=== PATIENT | male | born 1950 | race Caucasian/White ===

== ENCOUNTER 2019-07-25 09:18 | Outpatient (CLI) | payer MEDICARE, SELFPAY ==
[2019-07-25 09:36] LABS: Appearance Urine Cloudy (Clear); Bilirubin Urine Negative (Negative); Color Urine Orange (Yellow); Glucose Urine UA Trace (Negative); Ketones Urine Negative (Negative); Leukocyte Esterase Ur 2+ (Negative); Nitrate Urine Positive (Negative); Protein Urine 1+ (Negative); Specific Grav Ur <= 1.005 (1.010-1.020)
[2019-07-25 09:38] LABS: Add Urine Microscopic? YES; Blood Urine Trace-Intact (Negative)
[2019-07-25 09:39] LABS: Bacteria Urine 4+ /hpf; Squamous Epithelial Cell Urine Rare /hpf (Few); WBC Urine 51-75 /hpf (0-3)
== END 2019-07-25 09:19 | disposition home or self-care (01) ==
PROVIDERS: PCP Internal Medicine; Visit Provider Internal Medicine
DX: N39.0 Urinary tract infection, site not specified (principal)
CPT/HCPCS: 81001; 87086; 87088

== ENCOUNTER 2021-08-21 00:35 | Day surgery (SDC) | payer MEDICARE, SELFPAY ==
[2021-08-13 09:02] VITALS: BMI 51.5
--- NOTE | 2021-08-20 14:47 | P.PNAN_ITS ---
Anes - Initial Pre Proc Eval Procedure: Operation Date: 08/21/21 09:00 Proposed Procedures p Colonoscopy - Endy Metz DO Date/Time: 08/20/21 14:47 Surgeon: Endy Metz DO Pre Op Diagnosis: positive cologuard Patient Data Age: 71 Gender: M Height: 1.63 m Weight: 136 kg Allergies Allergy/AdvReac Type Severity Reaction Status Date / Time No Known Allergies Allergy Verified 08/21/21 08:22 Home Medications Medication Instructions Recorded Confirmed Type acetaminophen-codeine 1 tablet PO BID PRN 08/13/21 08/21/21 History albuterol sulfate [Ventolin HFA] 2 inh INHALATION Q4H PRN 08/13/21 08/21/21 History budesonide-formoterol [Symbicort] 1 inh INHALATION DAILY 08/13/21 08/21/21 History celecoxib 200 mg PO DAILY 08/13/21 08/21/21 History docusate sodium 100 mg PO DAILY PRN 08/13/21 08/21/21 History furosemide 40 mg PO DAILY 08/13/21 08/21/21 History gabapentin 300 mg PO BID 08/13/21 08/21/21 History hydrochlorothiazide 25 mg PO DAILY 08/13/21 08/21/21 History ipratropium-albuterol 3 ml INHALATION QID PRN 08/13/21 08/21/21 History metformin 500 mg PO BID 08/13/21 08/21/21 History multivit with min-folic acid 1 tablet PO DAILY 08/13/21 08/21/21 History [Adult One Daily Multivitamin] potassium chloride 10 meq PO DAILY 08/13/21 08/21/21 History Patient hx anesthesia problems: none Family hx anesthesia problems: none Results Review: All pre-operative results and documents have been reviewed as part of the pre-operative evaluation. [facility] Past Medical History Medical History (Updated 08/20/21 @ 14:48 by Huber Mcgovern DO) Anxiety Montelongo's palsy Chronic, continuous use of opioids COPD (chronic obstructive pulmonary disease) Diabetes type 2, controlled Hypertension JESUS (obstructive sleep apnea) Family History Family History (Updated 08/01/18 @ 00:00 by CONVUSER Gage) Father Family history of type 2 diabetes mellitus Social History Social History Smoking status: Former smoker Tobacco type: cigarettes Alcohol intake: former Living arrangements: with family Spiritual care concerns: No Anes - Eval Final PreProcedure Day of Procedure 08/20/21 14:47 Patient weight: super morbidly obese Heart: regular rate and rhythm Lungs: clear to auscultation and normal air movement Airway: Mallampati scale class II Neurological: alert and oriented Last oral intake: >/= 8 hours ASA classification: IV Emergent: no Anesthetic plan: proceed Anesthesia type and monitoring: general GIVS and standard monitoring Results Review: All pre-operative results and documents have been reviewed as part of the pre-operative evaluation. Informed Consent: The patient's anesthetic plan and its attendant risks and benefits were discussed with the patient/family/POA. Questions were solicited and answers provided to the satisfaction of the patient/family/POA.
[2021-08-21 08:22] LABS: Glucose Point of Care 139 mg/dl (65-105)
[2021-08-21 08:24] VITALS: BP 189/73; PULSE 84; RESP 17; TEMP 36.9; O2SAT 96
[2021-08-21] MEDS: LACTATED RINGERS 1,000 ML 150 ML IV CONT (08:34)
--- NOTE | 2021-08-21 09:28 | PM.IMHP ---
H&P: HPI History of Present Illness Date/Time: 08/21/21 09:28 Chief Complaint: positive Cologuard Narrative: this is a 71-year-old man who presents for colonoscopy. He recently had a Cologuard test that was positive. He has never had a colonoscopy before. He denies any blood in his stool. He denies any family history of colon cancer. Review of Systems Review of Systems: All systems reviewed & are unremarkable except as noted in HPI and below Constitutional: Constitutional: Denies chills, Denies fever(s), Denies headache(s) and Denies weight loss Eyes: Eyes: Denies change in vision ENT: Denies dizziness, Denies headache(s), Denies neck mass and Denies throat swelling Cardiovascular: Cardiovascular: Denies chest pain, Denies lightheadedness and Denies dyspnea Respiratory: Respiratory: Denies cough, Denies dyspnea and Denies wheezing Gastrointestinal: Gastrointestinal: Denies abdominal pain, Denies change in bowel habits, Denies nausea and Denies vomiting Genitourinary: Genitourinary: Denies hematuria and Denies dysuria Musculoskeletal: Musculoskeletal: Reports as per HPI Integumentary/Breasts: Skin/Breast: Reports as per HPI Neurologic: Denies dizziness and Denies headache(s) Allergic/Immunologic: Allergic/Immunologic: Denies throat swelling and Denies wheezing [facility] Past Medical History Medical History (Updated 08/21/21 @ 09:29 by Endy Metz DO) Anxiety Montelongo's palsy Chronic, continuous use of opioids COPD (chronic obstructive pulmonary disease) Diabetes type 2, controlled Hypertension JESUS (obstructive sleep apnea) Family History Family History (Updated 08/01/18 @ 00:00 by CONVUSER A) Father Family history of type 2 diabetes mellitus Social History Social History Smoking status: Former smoker Tobacco type: cigarettes Alcohol intake: former Living arrangements: with family Spiritual care concerns: No Meds Home Medications and Allergies Home Medications Medication Instructions Recorded Confirmed Type acetaminophen-codeine 1 tablet PO BID PRN 08/13/21 08/21/21 History albuterol sulfate [Ventolin HFA] 2 inh INHALATION Q4H PRN 08/13/21 08/21/21 History budesonide-formoterol [Symbicort] 1 inh INHALATION DAILY 08/13/21 08/21/21 History celecoxib 200 mg PO DAILY 08/13/21 08/21/21 History docusate sodium 100 mg PO DAILY PRN 08/13/21 08/21/21 History furosemide 40 mg PO DAILY 08/13/21 08/21/21 History gabapentin 300 mg PO BID 08/13/21 08/21/21 History hydrochlorothiazide 25 mg PO DAILY 08/13/21 08/21/21 History ipratropium-albuterol 3 ml INHALATION QID PRN 08/13/21 08/21/21 History metformin 500 mg PO BID 08/13/21 08/21/21 History multivit with min-folic acid 1 tablet PO DAILY 08/13/21 08/21/21 History [Adult One Daily Multivitamin] potassium chloride 10 meq PO DAILY 08/13/21 08/21/21 History Allergies Allergy/AdvReac Type Severity Reaction Status Date / Time No Known Allergies Allergy Verified 08/21/21 08:22 Vital Signs Vital Signs - 24 hr 08/21/21 08:24 Temperature 36.9 C Pulse Rate 84 Respiratory Rate 17 Blood Pressure 189/73 H Pulse Oximetry 96 Exam Const: General: no acute distress and alert Orientation/consciousness: patient oriented x3 HENMT: Head: normocephalic and atraumatic Ears: hearing grossly normal bilaterally General nose exam: Normal nares present Mouth: Yes Normal oral and palatal mucosa present Eyes: Periorbital: periorbital findings normal Sclera: sclerae normal EOM: EOMs intact bilaterally Neck: Neck: normal visual inspection, no lymphadenopathy and trachea midline Chest: Chest palpation & inspection: normal inspection of the chest Resp: Effort & Inspection: normal respiratory effort Auscultation: clear to auscultation bilaterally Cardio: Jugular venous distension: no JVD Rate: regular rate Rhythm: regular rhythm Heart sounds: S1 normal heart sound present and S2 normal heart sound present Peripheral pulses: Peripher
[2021-08-21 10:20] VITALS: BP 136/70; PULSE 74; RESP 20; O2SAT 99
[2021-08-21 10:30] VITALS: BP 139/74; PULSE 72; RESP 20; O2SAT 99
[2021-08-21 10:40] VITALS: BP 135/87; PULSE 70; RESP 22; O2SAT 99
== END 2021-08-21 10:55 | disposition home or self-care (01) ==
PROVIDERS: PCP Internal Medicine; Visit Provider Surgery
PROC: 0DJD8ZZ Inspection of Lower Intestinal Tract, Via Natural or Artificial Opening Endoscopic (ICD-10-PCS; CPT 45378; principal; 2021-08-21 09:00)
DX: R19.5 Other fecal abnormalities (principal); D12.5 Benign neoplasm of sigmoid colon; D12.3 Benign neoplasm of transverse colon; K57.30 Diverticulosis of large intestine without perforation or abscess without bleeding; I10 Essential (primary) hypertension; E11.9 Type 2 diabetes mellitus without complications; J44.9 Chronic obstructive pulmonary disease, unspecified; G47.33 Obstructive sleep apnea (adult) (pediatric); F41.9 Anxiety disorder, unspecified; Z79.891 Long term (current) use of opiate analgesic; Z87.891 Personal history of nicotine dependence; E66.01 Morbid (severe) obesity due to excess calories; Z68.43 Body mass index [BMI] 50.0-59.9, adult; Z79.51 Long term (current) use of inhaled steroids; Z79.84 Long term (current) use of oral hypoglycemic drugs
CPT/HCPCS: 45385; 82948; 88305; J2001; J2704; J7120

== ENCOUNTER 2022-08-10 13:00 | Outpatient (CLI) | payer MEDICARE, SELFPAY ==
--- NOTE | 2022-08-10 01:00 | ECHO_ITS ---
Patient Info Name: Tj Cullen Age: 72 years : 1950 Gender: Male Ht: 64 in Wt: 314 lbs BSA: 2.63 m2 HR: 83 bpm BP: 184 / 54 mmHg Heart Rhythm: Sinus Rhythm Technical Quality: Fair Exam Date: 08/10/2022 1:26 PM Exam Location: [facility] Patient Status: Outpatient Admit Date: 08/10/2022 Staff Ordering Physician: Tanja Figueredo MD S[employer] Hana Developer: Valerie Jernigan RDCS Attending Provider: Tanja Figueredo MD Referring Physician: Terell BETH; Exam Type: CA echo doppler color flow Study Info Indications R01.1 - Cardiac murmur, unspecified - hypertension Complete two-dimensional, color flow and Doppler transthoracic echocardiogram is performed. Summary 1. Complete two-dimensional, color flow and Doppler transthoracic echocardiogram is performed. 2. Left ventricular chamber dimension is normal. 3. Left ventricular systolic function is normal, estimated at 60-65%. 4. There is mild concentric increased left ventricular wall thickness. 5. The left ventricular diastolic function is grade I diastolic dysfunction. 6. E/e' 12 is mildly elevated. 7. There is moderate aortic valve sclerosis. 8. There is mild aortic valve stenosis with a peak velocity of 248 cm/s, mean gradient of 12 mmHg, and aortic valve area of 1.9 cm2. 9. There is trace tricuspid valve regurgitation. 10. No pulmonary hypertension, estimated pulmonary arterial systolic pressure is 23 mmHg. Left Ventricle E/e' 12 is mildly elevated. Left ventricular chamber dimension is normal. Left ventricular systolic function is normal, estimated at 60-65%. There is mild concentric increased left ventricular wall thickness. The left ventricular diastolic function is grade I diastolic dysfunction. Right Ventricle Right ventricular systolic function is normal and with normal TAPSE 2.8 cm. Right ventricular chamber dimension is normal. Left Atria Left atrial chamber dimension is normal. Right Atria Right atrial chamber dimension is normal. Aortic Valve The aortic valve is trileaflet. There is moderate aortic valve sclerosis. There is mild aortic valve stenosis with a peak velocity of 248 cm/s, mean gradient of 12 mmHg, and aortic valve area of 1.9 cm2. There is no aortic valve regurgitation. Pulmonic Valve There is no pulmonic regurgitation. Mitral Valve There is no mitral valve stenosis. There is no mitral valve regurgitation. Tricuspid Valve There is trace tricuspid valve regurgitation. No pulmonary hypertension, estimated pulmonary arterial systolic pressure is 23 mmHg. Pericardium/Pleural There is no pericardial effusion. Inferior Vena Cava Normal inferior vena cava with >50% collapse upon inspiration consistent with normal right atrial pressure, 5 mmHg. Aorta The aortic root size at the sinus of Valsalva is normal. Left Ventricular Outflow Tract Name Value Normal LVOT 2D LVOT Diameter 1.9 cm LVOT Doppler LVOT Peak Velocity 118 cm/s LVOT Peak Gradient 6 mmHg LVOT Mean Gradient 3 mmHg LVOT VTI 27 cm
== END 2022-08-10 13:01 | disposition home or self-care (01) ==
LOC: CHSIMG 13:02
PROVIDERS: PCP Internal Medicine; Visit Provider Internal Medicine
DX: R01.1 Cardiac murmur, unspecified (principal); I10 Essential (primary) hypertension
CPT/HCPCS: 93306